=== PATIENT | female | born 1995 | race African-American/Black ===

== ENCOUNTER 2021-01-15 08:29 | Emergency (ER) | payer OTHER, SELFPAY ==
--- NOTE | 2021-01-15 10:47 | RAD REPORT ---
EXAM DESCRIPTION: Clay Ngo (2 Views)01/15/2021 10:39 am CLINICAL HISTORY: Palpitations COMPARISON: None FINDINGS: The lungs appear clear of acute infiltrate. The heart is normal size IMPRESSION: No acute abnormalities displayed
[2021-01-15 11:54] LABS: Absolute Lymphocytes (CBC) 1.8 K/uL (0.7-4.9); Basophils % 0.4 % (0-1.3); Hematocrit 39.1 % (36.0-45.0); Lymphocytes % 35.1 % (15.3-44.8); MPV 6.7 fL (7.6-11.3)
[2021-01-15 12:07] LABS: BUN Blood Urea Nitrogen 8 mg/dL (7-18); Bicarbonate 23 mmol/L (21-32); Glucose Level 76 mg/dL (74-106); Sodium Level 138 mmol/L (136-145); Troponin (Emerg Dept Use Only) < 0.02 ng/mL (0.0-0.045)
[2021-01-15 12:33] LABS: Urine Blood Trace-intact (Negative); Urine Glucose Negative (Negative); Urine Protein Negative (Negative); Urine Specific Gravity 1.015 (1.005-1.030); Urine pH 6.5 (5.0-7.0)
[2021-01-15] MEDS ORDERED: NA CHLORIDE 0.9% 1,000 ML ONE (12:56)
--- NOTE | 2021-01-15 13:10 | ER ---
Nurse's Notes [facility] Name: Lucrecia Colvin Age: 25 yrs Sex: Female : 1995 Arrival Date: 01/15/2021 Time: 08:32 Bed 10 Private MD: Diagnosis: Volume depletion, unspecified;Palpitations Presentation: 01/15 08:46 Chief complaint: Patient states: CP, near syncope, leg pains and weak for 3 days. No ll1 fever. No cough or fever. Vit D. deficiency. Coronavirus screen: Vaccine status: Patient reports receiving the 2nd dose of the covid vaccine. Date August 2020. Ebola Screen: Patient denies travel to an Ebola-affected area in the 21 days before illness onset. Initial Sepsis Screen: Does the patient meet any 2 criteria? HR > 90 bpm. No. Patient's initial sepsis screen is negative. Does the patient have a suspected source of infection? No. Patient's initial sepsis screen is negative. Risk Assessment: Do you want to hurt yourself or someone else? Patient reports no desire to harm self or others. Onset of symptoms was January 12, 2021. 08:46 Method Of Arrival: Ambulatory ll1 08:46 Acuity: GANESH 3 ll1 Historical: - Allergies: 08:49 No Known Allergies; ll1 - PMHx: 08:49 None; ll1 - PSHx: 08:49 None; ll1 - Immunization history:: Client reports receiving the 2nd dose of the Covid vaccine, Flu vaccine is not up to date. - Social history:: Smoking status: Patient denies any tobacco usage or history of. Screenin:37 Abuse screen: Denies threats or abuse. Nutritional screening: No deficits noted. vg1 Tuberculosis screening: No symptoms or risk factors identified. Fall Risk No fall in past 12 months (0 pts). No secondary diagnosis (0 pts). IV access (20 points). Ambulatory Aid- None/Bed Rest/Nurse Assist (0 pts). Gait- Normal/Bed Rest/Wheelchair (0 pts) Mental Status- Oriented to own ability (0 pts). Total Ruano Fall Scale indicates No Risk (0-24 pts). Assessment: 11:00 General: Appears in no apparent distress. comfortable, Behavior is calm, cooperative. vg1 Pain: Denies pain. Neuro: Level of Consciousness is awake, alert, obeys commands, Oriented to person, place, time, situation. Cardiovascular: Patient's skin is warm and dry. Rhythm is regular. Respiratory: Airway is patent Respiratory effort is even, unlabored. GI: No signs and/or symptoms were reported involving the gastrointestinal system. : No signs and/or symptoms were reported regarding the genitourinary system. EENT: No signs and/or symptoms were reported regarding the EENT system. Derm: Skin is intact, is healthy with good turgor. Musculoskeletal: Circulation, motion, and sensation intact. 11:00 Pain: Pain does not radiate. Pain began 1 day ago. vg1 12:37 Reassessment: Patient appears in no apparent distress at this time. Patient and/or vg1 family updated on plan of care and expected duration. Pain level reassessed. Patient is alert, oriented x 3, equal unlabored respirations, skin warm/dry/pink. Patient denies pain at this time. 13:38 Reassessment: Patient appears in no apparent distress at this time. No changes from vg1 previously documented assessment. Patient and/or family updated on plan of care and expected duration. Pain level reassessed. Patient is alert, oriented x 3, equal unlabored respirations, skin warm/dry/pink. Vital Signs: 08:46 BP 121 / 88; Pulse 114; Resp 16; Temp 98.4; Pulse Ox 100% ; Weight 43.09 kg; Height 5 ll1 ft. 4 in. (162.56 cm); Pain 5/10; 11:14 BP 117 / 73 Supine; Pulse 85; vg1 11:16 BP 116 / 78 Sitting; Pulse 86; vg1 11:18 BP 126 / 89 Standing; Pulse 98; vg1 12:36 BP 114 / 73; Pulse 82; Resp 16; Pulse Ox 100% ; vg1 13:30 BP 107 / 70; Pulse 80; Resp 16; Pulse Ox 100% ; vg1 08:46 Body Mass Index 16.31 (43.09 kg, 162.56 cm) ll1 ED Course: 08:32 Patient arrived in ED. as 08:46 Arm band placed on. ll1 08:48 Triage completed. ll1 10:19 Rosa Badillo FNP-C [facility]. kb 10:19 Sonny Ybarra MD is Attending Physician. kb 10:37 Chest Pa And Lat (2 Views) XRAY In Process Unspecified. EDMS 10:39 Emily Jimenez, RN is Primary Nurse. vg1 11:00 Patient has correct armband on for positive identification. Bed in low position. Call vg1 light in reach. Adult w/ patient. Pulse ox on. NIBP on. 11:29 Initial lab(s) drawn, by me, sent to lab. Inserted saline lock: 24 gauge in right vg1 antecubital area, using aseptic technique. Blood collected. 14:05 No provider procedures requiring assistance completed. IV discontinued, intact, vg1 bleeding controlled, No redness/swelling at site. Pressure dressing applied. Patient maintains SpO2 saturation greater than 95% on room air. Administered Medications: 12:35 Drug: NS 0.9% 1000 ml Route: IV; Rate: 1000 ml; Site: right antecubital; vg1 14:01 Follow up: IV Status: Completed infusion; IV Intake: 1000ml vg1 Intake: 14:01 IV: 1000ml; Total: 1000ml. vg1 Outcome: 13:09 Discharge ordered by . kb 14:06 Discharged to home ambulatory, with family. vg1 14:06 Condition: stable 14:06 Discharge instructions given to patient, Instructed on discharge instructions, follow up and referral plans. Demonstrated understanding of instructions, follow-up care. 14:06 Patient left the ED. vg1 Signatures: Dispatcher [employer] EDMS Rosa Badillo, COMMERCIAL [employer]STRU[employer] PROJECT MANAGER-C COMMERCIAL CONSTRUCTION PROJECT MANAGER-Maren Wilde Victoria, RN RN vg1 Sadi Zarate RN RN ll1
--- NOTE | 2021-01-15 13:10 | EDPHYS ---
Physician Documentation [facility] Name: Lucrecia Colvin Age: 25 yrs Sex: Female : 1995 Arrival Date: 01/15/2021 Time: 08:32 Bed 10 Private MD: ED Physician Sonny Ybarra HPI: 01/15 10:28 This 25 yrs old Black Female presents to ER via Ambulatory with complaints of Chest kb Pain, Palpitations, Near Syncope. 10:28 The patient presents with a history of heart racing. Context: The symptoms occur at kb rest. Onset: The symptoms/episode began/occurred 3 day(s) ago. Duration: The patient or guardian reports a single episode, that is still ongoing. Modifying factors: The symptoms are aggravated by nothing. The symptoms are alleviated by nothing. Associated signs and symptoms: Pertinent positives: near-syncope. Severity of symptoms: At their worst the symptoms were moderate in the emergency department the symptoms are unchanged. The patient has experienced a previous episode, approximately 3 weeks ago. The patient has not recently seen a physician. Pt reports palpitations, "pinches" to bilateral legs intermittently, and feeling like she is going to pass out after standing for long periods of time for approx 3 days. States she did pass out a few weeks ago, but did not get seen. . Historical: - Allergies: 08:49 No Known Allergies; ll1 - PMHx: 08:49 None; ll1 - PSHx: 08:49 None; ll1 - Immunization history:: Client reports receiving the 2nd dose of the Covid vaccine, Flu vaccine is not up to date. - Social history:: Smoking status: Patient denies any tobacco usage or history of. ROS: 10:27 Constitutional: Negative for fever, chills, and weight loss. kb 10:27 Cardiovascular: Positive for palpitations, Negative for chest pain, edema, orthopnea, paroxysmal nocturnal dyspnea. 10:27 MS/extremity: Positive for pain, of the right leg and left leg. 10:27 Neuro: Positive for near syncope. 10:27 All other systems are negative. Exam: 10:27 Constitutional: This is a well developed, well nourished patient who is awake, alert, kb and in no acute distress. Head/Face: Normocephalic, atraumatic. ENT: Moist Mucous membranes Cardiovascular: Regular rate and rhythm with a normal S1 and S2. No gallops, murmurs, or rubs. No pulse deficits. Respiratory: Respirations even and unlabored. No increased work of breathing, no retractions or nasal flaring. Skin: Warm, dry with normal turgor. Normal color. MS/ Extremity: Pulses equal, no cyanosis. Neurovascular intact. Full, normal range of motion. Neuro: Awake and alert, GCS 15, oriented to person, place, time, and situation. Moves all extremities. Normal gait. Psych: Awake, alert, with orientation to person, place and time. Behavior, mood, and affect are within normal limits. 12:27 ECG was reviewed by the Attending Physician. Vital Signs: 08:46 BP 121 / 88; Pulse 114; Resp 16; Temp 98.4; Pulse Ox 100% ; Weight 43.09 kg; Height 5 ll1 ft. 4 in. (162.56 cm); Pain 5/10; 11:14 BP 117 / 73 Supine; Pulse 85; vg1 11:16 BP 116 / 78 Sitting; Pulse 86; vg1 11:18 BP 126 / 89 Standing; Pulse 98; vg1 12:36 BP 114 / 73; Pulse 82; Resp 16; Pulse Ox 100% ; vg1 13:30 BP 107 / 70; Pulse 80; Resp 16; Pulse Ox 100% ; vg1 08:46 Body Mass Index 16.31 (43.09 kg, 162.56 cm) ll1 MDM: 10:20 Patient medically screened. kb 10:27 Data reviewed: vital signs, nurses notes. Data interpreted: Pulse oximetry: on room air kb is 100 %. Interpretation: normal. 12:24 Counseling: I had a detailed discussion with the patient and/or guardian regarding: the kb historical points, exam findings, and any diagnostic results supporting the discharge/admit diagnosis, lab results, radiology results, the need for outpatient follow up, a family practitioner, to return to the emergency department if symptoms worsen or persist or if there are any questions or concerns that arise at home. 01/15 10:26 Order name: CBC with Diff; Complete Time: 11:58 kb 01/15 10:26 Order name: Basic Metabolic Panel; Complete Time: 12:13 kb 01/15 10:26 Order name: Troponin (emerg Dept Use Only); Complete Time: 12:13 kb 01/15 10:26 Order name: Chest Pa And Lat (2 Views) XRAY; Complete Time: 10:48 kb 01/15 12:33 Order name: Urine Dipstick-Ancillary; Complete Time: 12:44 EDMS 01/15 10:26 Order name: IV Start; Complete Time: 11:29 kb 01/15 10:26 Order name: Urine Dipstick-Ancillary (obtain specimen); Complete Time: 12:36 kb 01/15 10:26 Order name: Urine Test (obtain specimen); Complete Time: 12:36 kb 01/15 10:26 Order name: EKG; Complete Time: 10:26 kb 01/15 10:26 Order name: EKG - Nurse/Tech; Complete Time: 11:29 kb 01/15 10:26 Order name: Orthostatics; Complete Time: 11:29 kb EC:27 Rate is 94 beats/min. Rhythm is regular. QRS [place] is Normal. MD interval is normal at kb 134 msec. QRS interval is normal at 74 msec. QT interval is normal at 350 msec. Administered Medications: 12:35 Drug: NS 0.9% 1000 ml Route: IV; Rate: 1000 ml; Site: right antecubital; vg1 14:01 Follow up: IV Status: Completed infusion; IV Intake: 1000ml vg1 Disposition: 15:14 Co-signature as Attending Physician, Sonny Ybarra MD I agree with the assessment and chris plan of care. Disposition Summary: 01/15/21 13:09 Discharge Ordered Location: Home kb Condition: Stable kb Diagnosis - Volume depletion, unspecified kb - Palpitations kb Followup: kb - With: Emergency Department - When: As needed - Reason: Worsening of condition Followup: kb - With: Private Physician - When: 2 - 3 days - Reason: Recheck today's complaints, Continuance of care, Re-evaluation by your physician Discharge Instructions: - Discharge Summary Sheet kb - Dehydration, Adult kb - Palpitations, [id number] kb Forms: - Medication Reconciliation Form kb - Thank You Letter kb - Antibiotic Education kb - Prescription Opioid Use kb - Work release form bd Signatures: Dispatcher [employer] EDLA Rosa Badillo, GLASS GLAZIER-C GLASS GLAZIER-Sonny Clark MD MD cha Garcia, Victoria RN RN vg1 Sadi Zarate RN RN ll1
[2021-01-15 14:14] VITALS: TEMP 98.4; O2SAT 100
[2021-01-15 14:19] VITALS: BP 107/70
--- NOTE | 2021-01-16 10:58 | EKG ---
Test Date: 2021-01-15 Test Time: 11:08:36 Vitamin Manager: NAFISA MEASUREMENT RESULTS: Intervals: Rate: 94 ID: [id number] QRSD: 74 QT: 350 QTc: 437 Kake: P: 85 ID: [id number] QRS: 82 T: 80 INTERPRETIVE STATEMENTS: Normal sinus rhythm Normal ECG No previous ECG available for comparison Electronically Signed On 01-16-21 10:54:16 CDT by Irvin Villanueva
== END 2021-01-15 14:06 | disposition home or self-care (01) ==
LOC: ER 08:29
DX: E86.9 Volume depletion, unspecified (principal)
CPT/HCPCS: 36415; 71046; 80048; 81003; 84484; 85025; 93005; 96360; 99284; J7030